=== PATIENT | female | born 1960 | race Caucasian/White ===

== ENCOUNTER 2024-09-21 09:46 | Emergency (ER) | payer MEDICARE, SELFPAY ==
[2024-09-21 09:59] VITALS: BP 110/88
--- NOTE | 2024-09-21 10:44 | ED.GENMED ---
History of Present Illness
General
Chief Complaint: Abdominal Pain
Time Seen by Provider: 09/21/24 10:28
History of Present Illness
History of Present Illness:
64-year-old female presents to the emergency department for evaluation of intractable nausea and vomiting as well as diarrhea for the past 2 to 3 days. She notes that she recently began taking Zepbound last week and the symptoms began 2 days
thereafter. Has not had a GLP-1 agonist in the past. Has been unable to tolerate any p.o. food or fluids in the past 48 hours. Reports indigestion type discomfort but denies any significant abdominal pain. No fevers or night sweats.
Past History
Past History
ED Past Medical History: None
ED Past Surgical History: None
Social History
Tobacco: Non-smoker
Review of Systems
Review of Systems
Allergies reviewed?: Yes
All Other Systems: ROS reviewed and negative except as documented in HPI and ROS
Phy Exam
Physical Exam
Physical Exam:
GEN: Well appearing, NAD, WDWN
HEENT: Oral mucosa moist, no scleral icterus
Cardiac: Regular rate
Lung: No respiratory distress, no tachypnea
Abdomen: Soft, grossly non tender
MSK: No gross deformity or injuries
Skin: Good color, no pallor or jaundice, no rashes
Neuro: AO x3, moves all extremities freely
Psych: Calm, cooperative
Course
Orders/Labs/Results
Orders:
Orders
09/21/24 10:43
Famotidine [Pepcid] 20 mg IV NOW STA
Lactated Ringers [Lr] 1,000 ml IV BOLUS
Metoclopramide [Reglan] 10 mg IV NOW STA
09/21/24 10:58
Complete Blood Count/No Diff Urgent
09/21/24 11:30
Comprehensive Metabolic Panel Urgent
Lipase Urgent
09/21/24 11:41
Diphenhydramine [Benadryl] 12.5 mg IV NOW STA
Abnormal Lab Results
09/21/24 09/21/24
10:58 11:30
RBC 5.62 H 10^6/uL
(4.20-5.40)
Hgb 16.8 H g/dL
(12.0-16.0)
Carbon Dioxide 21 L mmol/L
(22-30)
Total Bilirubin 1.4 H mg/dl
(0.2-1.3)
09/21/24 10:58
09/21/24 11:30
Vital Signs
Initial and Last Documented VS:
Initial Vital Signs
Temp Pulse Resp BP Pulse Ox
98.0 F 102 18 110/88 97
09/21/24 09:59 09/21/24 09:59 09/21/24 09:59 09/21/24 09:59 09/21/24 09:59
Last Documented Vital Signs
Temp Pulse Resp BP Pulse Ox
98.0 F 102 18 146/68 96
09/21/24 09:59 09/21/24 09:59 09/21/24 09:59 09/21/24 11:22 09/21/24 11:22
MDM/Problems Addressed
MDM/Problems Addressed:
Suspect symptoms due to recently initiated GLP-1. Tolerating PO fluids at time of d/c, labs normal. Advised to d/c GLP-1
*Critical Care Note
Total Time (30-74mins, 75-104mins- exclusive of procedures): Not Applicable
ED Attending Note
-
Portions of this chart may have been created with voice recognition software.� Occasional wrong word or��sound alike� substitutions may have occurred due to the inherent limitations of voice recognition software.
Discharge Plan
Departure
Patient Disposition: Home (Routine Discharge)
Date of Disposition: 09/21/24
Time of Disposition: 12:33
Patient with high blood pressure during this ER visit?: No
Discharge Problem:
Medication side effects, Nausea and vomiting
Instructions: Nausea and Vomiting, Adult (DC)
Prescriptions:
New
ondansetron 4 mg tablet,disintegrating
4 mg PO TIDPRN PRN (Reason: nausea/vomiting) Qty: 10 0RF
No Action
hydrocodone-acetaminophen 1 TABLET tablet
1 tab PO Q6HPRN PRN (Reason: Pain) Qty: 10 0RF
Referrals:
Jen Swain MD [Family Provider] -
Interventions
Interventions:
*Risk Screen - Suicide Last Done: 09/21/24 10:01
*General Assessment Last Done: 09/21/24 10:01
*Neglect/Abuse Screening Last Done: 09/21/24 10:01
ED- Fall Risk Assessment Last Done: 09/21/24 10:58
*ED COVID-19 Vaccine History Last Done: 09/21/24 10:58
*Nursing Disposition Last Done: 09/21/24 13:07
NW-Cnuzky-Gmwdyqnkyl Assessment Last Done: 09/21/24 10:58
Discharge Date and Time
Discharge Date/Time: 09/21/24 12:50
Print Language: SWEDISH
[2024-09-21] MEDS: LR 1000 IV (11:00)
[2024-09-21] MEDS: REGLAN 10 MG IV (11:15)
[2024-09-21] MEDS: PEPCID 20 MG IV (11:15)
[2024-09-21 11:22] VITALS: BP 146/68
[2024-09-21 11:22] LABS: Hematocrit 46.8 % (37.0-47.0); Hemoglobin 16.8 g/dL (12.0-16.0); Mean Corp Hgb Conc. 35.9 g/dL (33.0-37.0); Mean Corpuscular Hgb 29.9 pg (27.0-31.0); Mean Corpuscular Volume 83.3 fL (81.0-99.0); Mean Platelet Volume 10.1 fL (7.4-10.4); Platelet Count 233 10^3/uL (130-400); Red Blood Cell Count 5.62 10^6/uL (4.20-5.40); Red Cell Dist. Width 13.2 % (11.5-14.5); White Blood Cell Count 8.3 10^3/uL (4.8-10.8)
[2024-09-21] MEDS: BENADRYL 12.5 MG IV (11:43)
[2024-09-21 12:14] LABS: ALT (SGPT) 35 U/L (0-35); AST (SGOT) 33 U/L (14-36); Alkaline Phosphatase 52 U/L (38-126); Blood Urea Nitrogen 16 mg/dl (7-17); Calcium 9.5 mg/dl (8.4-10.2); Carbon Dioxide 21 mmol/L (22-30); Chloride 102 mmol/L (98-107); Glucose 91 mg/dl (70-99); Lipase 94 U/L (23-300); Sodium 137 mmol/L (135-145); Total Bilirubin 1.4 mg/dl (0.2-1.3); Total Protein 7.5 g/dl (6.3-8.2); eGFR > 60.00
== END 2024-09-21 12:50 | disposition home or self-care (01) ==
LOC: EMR 09:46
PROVIDERS: Physician Assistant; EMERGENCY PHYSICIAN Emergency Medicine; FAMILY PHYSICIAN Internal Medicine
DX: R11.2 Nausea with vomiting, unspecified (principal); T50.995A Adverse effect of other drugs, medicaments and biological substances, initial encounter
CPT/HCPCS: 99284; 96374; 96375 ×2; 96361; 80053; 83690; 85027

== ENCOUNTER 2025-02-07 06:13 | Day surgery (SDC) | payer MEDICARE, SELFPAY | END 2025-02-07 15:06 | disposition home or self-care (01) | LOC: GI 06:13 | PROVIDERS: ATTENDING PHYSICIAN Surgery | DX: Z12.11 Encounter for screening for malignant neoplasm of colon (principal); D12.0 Benign neoplasm of cecum; D12.7 Benign neoplasm of rectosigmoid junction; K63.5 Polyp of colon | CPT/HCPCS: 45385; 88305 ==